=== PATIENT | male | born 1985 | race Caucasian/White ===

== ENCOUNTER 2020-07-13 00:05 | Emergency (ER) | payer OTHER, MEDICAID ==
[~2020-07-13] VITALS: Ht 170.2 cm; Wt 70.3 kg
[2020-07-13 00:17] VITALS: BP 149/75
--- NOTE | 2020-07-13 00:20 | NUR ---
EKG PERFORMED AT BEDSIDE.
--- NOTE | 2020-07-13 00:23 | NUR ---
35 YEAR OLD MALE AOX4 BROUGHT IN BY AMBULANCE FOR CHIEF COMPLAINT OF CHEST PAIN. PATIENT STATES 7/10 CHEST PAIN. PATIENT STATES CHEST PAIN IN MIDDLE OF CHEST, STATES NON-RADIATING, AND DESCRIBES IT SHARP PAIN. PATIENT STATES CHEST PAIN STARTED 1 WEEK AGO BUT GOT WORSE 1 HOUR AGO. PATIENT DENIES OTHER MEDICAL COMPLAINTS. BED LOCKED IN LOWEST POSITION WITH 2 SIDE RAILS UP FOR SAFETY AND CALL LIGHT WITHIN REACH. WILL CONTINUE TO MONITOR. HISTORY- ULCERATIVE COLITIS AND DARIER DISEASE ALLERGIES- NONE
--- NOTE | 2020-07-13 00:30 | NUR ---
[employer]STA PLUMMER AT BEDSIDE FOR MEDICAL EVALUATION.
[2020-07-13] MEDS ORDERED: NACL 0.9% 1,000 ML IV ONE (00:35)
[2020-07-13] MEDS ORDERED: KETOROLAC 30 MG/ML VIAL IVP ONE (00:35)
--- NOTE | 2020-07-13 00:40 | NUR ---
DISTRIBUTOR PUBLICATIONS AT BEDSIDE FOR LAB DRAW.
[2020-07-13 00:51] LABS: BASOPHILS # (AUTO) 0.2 K/uL (0.00-0.22); BASOPHILS % (AUTO) 1.9 % (0.0-2.0); EOSINOPHILS # (AUTO) 0.5 K/uL (0-0.4); EOSINOPHILS % (AUTO) 5.2 % (0.0-4.0); HEMATOCRIT 28.8 % (36-52); HEMOGLOBIN 8.7 g/dL (12.0-18.0); LYMPHOCYTES # (AUTO) 2.8 K/uL (2.0-11.5); LYMPHOCYTES % (AUTO) 31.1 % (20.5-51.1); MEAN CORPUSCULAR HEMOGLOBIN 19 pg (27-31); MEAN CORPUSCULAR HGB CONC 30 g/dL (33-37); MEAN CORPUSCULAR VOLUME 62.7 fL (80-94); MONOCYTES # (AUTO) 0.7 K/uL (0.8-1.0); MONOCYTES % (AUTO) 7.7 % (1.7-9.3); NEUTROPHILS # (AUTO) 4.9 K/uL (1.8-7.7); NEUTROPHILS % (AUTO) 54.1 % (42.2-75.2); PLATELET COUNT (AUTO) 381 K/uL (140-450); RED BLOOD CELL COUNT(AUTO) 4.58 MIL/uL (4.20-6.10); RED CELL DISTRIBUTION WIDTH 24.2 % (11.6-13.7)
[2020-07-13 01:06] LABS: ALBUMIN 3.7 g/dL (3.4-5.0); ANION GAP 8.6 (8-16); CARBON DIOXIDE 33.2 mmol/L (21-32); POTASSIUM 3.8 mmol/L (3.5-5.1); TOTAL BILIRUBIN 0.4 mg/dL (0.0-1.0)
--- NOTE | 2020-07-13 01:11 | NUR ---
PATIENT TAKEN TO CT VIA GURNEY BY BOATSWAINS MATE.
--- NOTE | 2020-07-13 01:25 | NUR ---
Pt refused to have CT performed until he was able to use urinal. Pt was provided a urinal but told low voltage technician he does not want to urinate and patient stated to low voltage technician "to leave him the fuck alone." Pt was brought back from CT w/o completion of exam. CHICA Noyola made aware of pt's refusal.
[2020-07-13 02:02] VITALS: BP 149/75
--- NOTE | 2020-07-13 02:02 | NUR ---
Patient discharged with v/s stable. Written and verbal after care instructions given and explained. Patient verbalized understanding. Ambulatory with steady gait. All questions addressed prior to discharge. Advised to follow up with PMD.
--- NOTE | 2020-07-13 02:02 | NUR ---
PATIENT FOUND AWAKE WITH EYES OPEN LYING ON LEFT SIDE ON BED. PATIENT IS AOX4. PATIENT ACKNOWLEDGED DISCHARGE INSTRUCTIONS, HAD NO QUESTIONS, AND SIGNED DISCHARGED PAPERS. AFTER SIGNING DISCHARGE PAPERS, PATIENT BECAME AGITATED AND VERBALLY ABUSIVE. SECURITY WAS CALLED. PATIENT WAS ESCORTED OUT OF ER BY SECURITY.
--- NOTE | 2020-07-13 02:02 | NUR ---
IV removed, catheter intact and site benign. Applied folded 4x4 gauze and tape to stop bleeding.
== END 2020-07-13 02:02 | disposition home or self-care (01) ==
LOC: MED 00:05
DX: R07.9 Chest pain, unspecified (principal); D64.9 Anemia, unspecified; R03.0 Elevated blood-pressure reading, without diagnosis of hypertension; R19.7 Diarrhea, unspecified
CPT/HCPCS: 36415; 80053; 84484; 85025; 93005; 96361; 96374; 99284; J1885; J7030